=== PATIENT | male | born 1975 | race Caucasian/White ===

== ENCOUNTER 2016-07-29 21:39 | Emergency (ER) | payer OTHER ==
[2016-07-29 23:01] LABS: BASOPHIL 0.2 % (0-2); EOSINOPHIL 2.3 % (0-5); HCT 41.3 % (42.0-52.0); HGB 14.6 g/dl (13.2-18.0); LYMPHOCYTE 22.4 % (15-48); MCH 31.7 pg (25.0-31.0); MCHC 35.4 g/dL (32.0-36.0); MCV 89.8 fL (78.0-100.0); MONOCYTE 9.1 % (0-12); MPV 10.3 fL (6.0-9.5); PLT 185 K/uL (150-400)
[2016-07-29 23:22] LABS: CREATININE 0.8 mg/dL (0.7-1.2); POTASSIUM 3.6 mmol/L (3.5-5.1)
== END 2016-07-30 01:19 | disposition home or self-care (01) ==
LOC: FER 21:39
PROVIDERS: Emergency Medicine Emergency Medical Services
DX: L03.115 Cellulitis of right lower limb (principal); E86.9 Volume depletion, unspecified; Z88.1 Allergy status to other antibiotic agents; Z98.890 Other specified postprocedural states
CPT/HCPCS: 36415; 80048; 85025; 87040; J1885; J2930

== ENCOUNTER 2016-08-01 08:01 | Emergency (ER) | payer OTHER | END 2016-08-01 09:24 | disposition home or self-care (01) | LOC: FER 08:01 | DX: L02.415 Cutaneous abscess of right lower limb (principal); Z88.1 Allergy status to other antibiotic agents ==

== ENCOUNTER 2021-03-12 17:29 | Emergency (ER) | payer OTHER ==
[~2021-03-12] VITALS: Ht 167.6 cm; Wt 79.4 kg
[2021-03-12 18:48] LABS: BASOPHIL 0.3 % (0-2); EOSINOPHIL 0.4 % (0-5); HCT 46.6 % (42.0-52.0); HGB 16.4 g/dl (13.2-18.0); LYMPHOCYTE 9.8 % (15-48); MCH 32.7 pg (25.0-31.0); MCHC 35.2 g/dL (32.0-36.0); MCV 92.8 fL (78.0-100.0); MONOCYTE 9.1 % (0-12); MPV 9.6 fL (6.0-9.5); NEUTROPHIL 79.8 % (41-80); NRBC 0; PLT 280 K/uL (150-400); RBC 5.02 M/uL (4.70-6.00); RDW 12.8 % (11.5-14.0); WBC 19.8 K/uL (4.0-10.5)
[2021-03-12 19:00] LABS: ALBUMIN 4.3 g/dL (3.4-5.0); BILIRUBIN - TOTAL 0.5 mg/dL (0.2-1.0); BUN/CREAT RATIO (CALC) 13.7 RATIO; CREATININE 0.51 mg/dL (0.67-1.17); GLOBULIN (CALCULATION) 3.9 g/dL; POTASSIUM 3.8 mmol/L (3.5-5.1); TOTAL PROTEIN 8.2 g/dL (6.4-8.2)
[2021-03-12] MEDS ORDERED: AUGMENTIN 875-1 EACH PO (23:25)
[2021-03-12] MEDS ORDERED: IBUPROFEN800 MG PO (23:25)
== END 2021-03-13 00:50 | disposition home or self-care (01) ==
LOC: FER 17:29
PROVIDERS: Internal Medicine
DX: R07.89 Other chest pain (principal); R51.9 Headache, unspecified; H57.11 Ocular pain, right eye; F17.210 Nicotine dependence, cigarettes, uncomplicated; Z88.1 Allergy status to other antibiotic agents
CPT/HCPCS: 36415; 70450; 70487; 71045; 80053; 84145; 84484; 85025; 93005; J1100; J1885; J2270; J7030; Q9967

== ENCOUNTER 2021-09-25 10:58 | Inpatient (IN) | payer OTHER ==
[~2021-09-25] VITALS: Ht 162.6 cm; Wt 87.5 kg
[~2021-09-25 10:58] MED LIST: AUGMENTIN 875-1 EACH PO; IBUPROFEN800 MG PO
[2021-09-25 11:53] LABS: BASOPHIL 0.3 % (0-2); HCT 44.6 % (42.0-52.0); HGB 15.7 g/dl (13.2-18.0); LYMPHOCYTE 17.1 % (15-48); MCHC 35.2 g/dL (32.0-36.0); MCV 96.5 fL (78.0-100.0); MONOCYTE 9.7 % (0-12); NEUTROPHIL 71.6 % (41-80); NRBC 0; PLT 229 K/uL (150-400); RBC 4.62 M/uL (4.70-6.00); RDW 13.2 % (11.5-14.0); WBC 14.3 K/uL (4.0-10.5)
[2021-09-25 12:11] LABS: BUN/CREAT RATIO (CALC) 10.9 RATIO; CREATININE 0.92 mg/dL (0.67-1.17); POTASSIUM 4.5 mmol/L (3.5-5.1)
[2021-09-25 12:22] LABS: LACTIC ACID 2.7 mmol/L (0.4-1.9)
[2021-09-25] MEDS ORDERED: PROZAC20 MG PO (15:13)
[2021-09-25] MEDS ORDERED: VIBRAMYCIN100 MG PO (15:13)
[2021-09-25] MEDS ORDERED: ZYPREXA 5MG TABL5 MG PO (15:13)
[2021-09-26 06:55] LABS: INR 1.02 (0.9-1.2); PROTHROMBIN TIME 12.8 SECONDS (11.8-13.4); PTT 28.1 SECONDS (24.4-34.7)
[2021-09-26 07:48] LABS: BASOPHIL 0.5 % (0-2); EOSINOPHIL 2.7 % (0-5); LYMPHOCYTE 23.1 % (15-48); MCH 33.5 pg (25.0-31.0); MCHC 34.1 g/dL (32.0-36.0); MCV 98.1 fL (78.0-100.0); MONOCYTE 11.2 % (0-12); MPV 10.2 fL (6.0-9.5); NRBC 0; PLT 199 K/uL (150-400); RBC 4.18 M/uL (4.70-6.00); RDW 13.2 % (11.5-14.0)
[2021-09-26 08:08] LABS: BUN/CREAT RATIO (CALC) 13.6 RATIO; CREATININE 0.88 mg/dL (0.67-1.17); POTASSIUM 4.2 mmol/L (3.5-5.1)
--- NOTE | 2021-09-26 19:47 | NUR ---
PER XRAY REPORT, TIP OF PICC CANNOT BE SEEN PAST THE LEFT SUBCLAVIAN VEIN. THIS WAS DISCUSSED WITH DR. DIAMOND. PER MD, PICC IS OK TO USE. WILL ORDER PA AND LATERAL XRAYS PER RADIOLOGY RECOMMENDATION TO DETERMINE IF PICC TIP EXTENDS PAST THE SUBCLAVIAN VEIN. CONFIRMED WITH REMAINING PICC CATHETER THAT PICC WAS CUT AT 47 CM. THIS MEASUREMENT WAS OBTAINED THREE TIMES WHEN MEASURING FOR ESTIMATED PICC LENGTH PRIOR TO INSERTION OF THE PICC. THE PICC WAS EASILY THREADED INTO THE VEIN AND IT CAN BE CHECKED FOR BLOOD RETURN AND FLUSHED WITHOUT DIFFICULTY. REPORT WAS GIVEN TO NEW PRIMARY RN FOR RESHIPPING CLERK.
[2021-09-26] MEDS ORDERED: VITAMIN D21250 MCG PO (23:42)
[2021-09-26 23:58] LABS: ALBUMIN 3.2 g/dL (3.4-5.0); BILIRUBIN - DIRECT 0.1 mg/dL (0.00-0.20); BILIRUBIN - TOTAL 0.4 mg/dL (0.2-1.0); GLOBULIN (CALCULATION) 3.4 g/dL; TOTAL PROTEIN 6.6 g/dL (6.4-8.2)
[2021-09-27 05:32] LABS: BASOPHIL 0.3 % (0-2); EOSINOPHIL 1.9 % (0-5); HCT 40.3 % (42.0-52.0); HGB 14.1 g/dl (13.2-18.0); LYMPHOCYTE 20.1 % (15-48); MCH 33.9 pg (25.0-31.0); MCV 96.9 fL (78.0-100.0); MONOCYTE 9.6 % (0-12); MPV 9.9 fL (6.0-9.5); NEUTROPHIL 67.5 % (41-80); NRBC 0; PLT 188 K/uL (150-400); RBC 4.16 M/uL (4.70-6.00); WBC 11.5 K/uL (4.0-10.5)
[2021-09-27 06:05] LABS: BUN/CREAT RATIO (CALC) 9.1 RATIO; C-REACTIVE PROTEIN 8.1 mg/dL (<=0.90); CREATININE 0.77 mg/dL (0.67-1.17)
[2021-09-28 06:06] LABS: BUN/CREAT RATIO (CALC) 21.9 RATIO; C-REACTIVE PROTEIN 7.9 mg/dL (<=0.90); CREATININE 0.73 mg/dL (0.67-1.17); POTASSIUM 4.1 mmol/L (3.5-5.1)
[2021-09-28 06:08] LABS: BASOPHIL 0.7 % (0-2); EOSINOPHIL 4.4 % (0-5); HCT 39.7 % (42.0-52.0); HGB 13.5 g/dl (13.2-18.0); LYMPHOCYTE 31.4 % (15-48); MCH 33.2 pg (25.0-31.0); MCV 97.5 fL (78.0-100.0); MONOCYTE 10.8 % (0-12); MPV 9.9 fL (6.0-9.5); NRBC 0; PLT 215 K/uL (150-400); RBC 4.07 M/uL (4.70-6.00); RDW 12.7 % (11.5-14.0); WBC 6.9 K/uL (4.0-10.5)
[2021-09-28] MEDS ORDERED: DAPTOMYCIN350 MG IV (14:03)
[2021-09-28] MEDS ORDERED: HYDROCODON-ACE1 EAC6 PO (14:03)
== END 2021-09-28 15:15 | disposition home or self-care (01) | DRG 872 ==
LOC: FER 10:58 → FMS 13:57
PROVIDERS: Emergency Medicine; Internal Medicine; Nurse Practitioner; ADMIT Internal Medicine
PROC: 3E03329 Introduction of Other Anti-infective into Peripheral Vein, Percutaneous Approach (ICD-10-PCS; principal; 2021-09-25)
PROC: 02HV33Z Insertion of Infusion Device into Superior Vena Cava, Percutaneous Approach (ICD-10-PCS; 2021-09-26)
DX: A41.9 Sepsis, unspecified organism (principal); L03.113 Cellulitis of right upper limb; M70.21 Olecranon bursitis, right elbow; Z20.822 Contact with and (suspected) exposure to COVID-19; F17.210 Nicotine dependence, cigarettes, uncomplicated; F41.9 Anxiety disorder, unspecified; F10.10 Alcohol abuse, uncomplicated; F31.9 Bipolar disorder, unspecified; Z88.1 Allergy status to other antibiotic agents; Z79.899 Other long term (current) drug therapy; Z86.14 Personal history of Methicillin resistant Staphylococcus aureus infection
CPT/HCPCS: 36415; 71045; 71046; 73200; 73201; 80048; 80076; 82550; 83605; 84145; 85025; 85610; 85730; 86140; 87040; 94010; J0878; J1642; J1650; J1885; J2020; J2543; J7030; J7050; Q9967; U0002